=== PATIENT | male | born 1975 | race African-American/Black ===

== ENCOUNTER 2021-01-01 15:25 | Emergency (ER) | payer MEDICAID ==
[~2021-01-01] VITALS: Ht 177.8 cm; Wt 72.9 kg
[2021-01-01 16:23] VITALS: BP 124/74
== END 2021-01-01 16:51 | disposition home or self-care (01) ==
LOC: ED 16:28
DX: S61.210A Laceration without foreign body of right index finger without damage to nail, initial encounter (principal); F17.210 Nicotine dependence, cigarettes, uncomplicated; W26.9XXA Contact with unspecified sharp object(s), initial encounter; Y93.89 Activity, other specified; Y92.009 Unspecified place in unspecified non-institutional (private) residence as the place of occurrence of the external cause; Y99.8 Other external cause status
CPT/HCPCS: 99282